=== PATIENT | male | born 1995 | race Two or more races ===

== ENCOUNTER 2024-05-11 14:08 | Emergency (ER) | payer OTHER ==
[~2024-05-11] VITALS: Ht 182.9 cm; Wt 83.9 kg
[2024-05-11 14:26] VITALS: BP 117/76; TEMP 98
[2024-05-11] MEDS ORDERED: TDAP [DIPH/PERTUSSIS/TET] 0.5 ML VIAL IM ONE (14:50)
[2024-05-11] MEDS: TDAP [DIPH/PERTUSSIS/TET] 0.5 ML VIAL IM ONE (14:58)
[2024-05-11] MEDS ORDERED: LIDOCAINE HCL/MPF 1% 30 ML VIAL IJ ONE (15:05)
[2024-05-11 15:30] VITALS: O2SAT 98
== END 2024-05-11 15:30 | disposition home or self-care (01) ==
LOC: ER 14:15
DX: S51.811A Laceration without foreign body of right forearm, initial encounter (principal); F41.9 Anxiety disorder, unspecified; W20.8XXA Other cause of strike by thrown, projected or falling object, initial encounter; Y93.89 Activity, other specified; Y92.89 Other specified places as the place of occurrence of the external cause; Y99.8 Other external cause status
CPT/HCPCS: 12001; 90471; 90715; 99283; J3490